=== PATIENT | male | born 1955 | race Caucasian/White ===

== ENCOUNTER 2018-03-03 12:58 | Emergency (ER) | payer OTHER ==
[2018-03-03 13:04] VITALS: BP 117/78; PULSE 104; TEMP 98.1; BMI 27.1
[2018-03-03] MEDS ORDERED: ONDANSETRON 4 MG/2 ML VIAL IVPUSH ONE (15:06)
[2018-03-03] MEDS ORDERED: FAMOTIDINE 20 MG/50 ML IVPB 20 MG/50 ML MG IVPB ONE ×2 (15:06→15:20)
[2018-03-03] MEDS ORDERED: SODIUM CHLORIDE 0.9% 1000 ML INFUS.BAG IV ONE ×2 (15:06→17:32)
[2018-03-03] MEDS ORDERED: ONDANSETRON 4 MG/2 ML VIAL ONE (15:20)
--- NOTE | 2018-03-03 15:23 | PDOC ---
History of Present Illness - General Chief Complaint: Vomiting/Diarrhea Stated Complaint: VOMITING/DIARRHEA Time Seen by Provider: 03/03/18 14:55 History Source: Patient Exam Limitations: No Limitations - History of Present Illness Initial Comments: 03/03/18 15:23 The patient is a 63M with a PMH of diabetes, hypercholesterolemia, depression, prostate cancer, VT, and cardiac stents x5 who presents to the ER with complaints of nausea, vomiting, diarrhea, and abdominal pain. The patient states that he had a colonoscopy and endoscopy with Dr. Barrow 5 days ago. He felt fine the night of. That night he ate some chicken and a burger. He states that the next night, he felt "violent gas" with vomiting NBNB, and copious watery diarrhea. Admits to R sided abdominal pain which is sharp, constant, worsening, nonradiating, and not alleviated or exacerbated by anything. He admits to SOB but denies CP, fevers, chills. Past History - Past Medical History Allergies/Adverse Reactions: Allergies Allergy/AdvReac Type Severity Reaction Status Date / Time No Known Allergies Allergy Verified 03/03/18 13:04 Home Medications: Ambulatory Orders Atorvastatin Ca [Lipitor] 80 mg PO HS 08/07/12 Clopidogrel Bisulfate [Plavix -] 75 mg PO DAILY 08/07/12 Lisinopril [Prinivil] 10 mg PO DAILY 08/07/12 Metoprolol Tartrate [Lopressor -] 25 mg PO DAILY 08/07/12 metFORMIN HCL [Glucophage -] 1,000 mg PO BID 08/07/12 Aspirin [ASA -] 81 mg PO DAILY 03/16/15 Bicalutamide [Casodex -] 50 mg PO DAILY 01/29/18 Gabapentin [Neurontin] 100 mg PO BID 01/29/18 Glipizide [Glucotrol Xl] 10 mg PO DAILY 01/29/18 Fluticasone/Vilanterol [Breo Ellipta 100-25 Mcg INH] 1 each IH DAILY 02/26/18 Mag Carb/Aluminum Hydrox/Algin [Gaviscon Liquid] 30 ml PO PRN PRN #1 oral.susp 02/26/18 Pantoprazole Sodium 40 mg PO DAILY #90 tablet. 02/26/18 Pantoprazole Sodium [Protonix -] 40 mg PO HS #30 tablet.ec 02/26/18 Umeclidinium [place] [Incruse Ellipta] 62.5 mcg IH DAILY 02/26/18 Anemia: No Asthma: No Cancer: Yes (PROSTATE) Cardiac Disorders: Yes (VT X 2) CVA: No COPD: No Dementia: No Diabetes: Yes Disorders: No HTN: Yes Hypercholesterolemia: Yes Liver Disease: No Psychiatric Problems: Yes (DEPRESSION.) Seizures: No Thyroid Disease: No - Surgical History Abdominal Surgery: No Appendectomy: No Cardiac Surgery: Yes (STENT X5) Cholecystectomy: No Lung Surgery: No Neurologic Surgery: No Orthopedic Surgery: No - Suicide/Smoking/Psychosocial Hx Smoking Status: Yes (QUIT) Smoking History: Never smoked Have you smoked in the past 12 months: No Number of Cigarettes Smoked Daily: 0 If you are a former smoker, when did you quit?: 1995 Information on smoking cessation initiated: No Hx Alcohol Use: No Drug/Substance Use Hx: No Substance Use Type: None Review of Systems - Review of Systems Able to Perform ROS?: Yes Comments:: 03/03/18 17:30 GENERAL/CONSTITUTIONAL: No fever or chills. No weakness. HEAD, EYES, EARS, NOSE AND THROAT: No change in vision. No ear pain or discharge. No sore throat. CARDIOVASCULAR: No chest pain, palpitations, or lightheadedness. RESPIRATORY: Positive for shortness of breath. No cough, wheezing, or hemoptysis. GASTROINTESTINAL: Positive for nausea, vomiting, diarrhea, and abdominal pain. GENITOURINARY: No dysuria, frequency, hematuria, or change in urination. MUSCULOSKELETAL: No joint or muscle swelling or pain. No neck or back pain. SKIN: No rash or lesions. NEUROLOGIC: No headache, numbness, tingling, focal weakness, loss of consciousness, or change in strength/sensation. ENDOCRINE: No increased thirst. No abnormal weight change. HEMATOLOGIC/LYMPHATIC: No anemia, easy bleeding, or history of blood clots. ALLERGIC/IMMUNOLOGIC: No hives or skin allergy. Is the patient limited Azeri proficient: No *Physical Exam - Vital Signs Last Vital Signs Temp Pulse Resp BP Pulse Ox 98.1 F 104 H 18 117/78 97 03/03/18 13:03 03/03/18 13:03 03/03/18 13:03 03/03/18 13:03 03/03/18 13:03 - Physical Exam Comments: 03/03/18 17:32 GENERAL: Well developed, well nourished. Awake and alert. No acute distress. HEENT: Normocephalic, atraumatic. Hearing grossly normal. Moist mucous membranes. PERRLA, EOMI. No conjunctival pallor. Sclera are non-icteric. Oropharynx is clear. NECK: Supple. Full ROM. No JVD. Carotid pulses 2+ and symmetric, without bruits. No thyromegaly. No lymphadenopathy. CARDIOVASCULAR: Regular rate and rhythm. No murmurs, rubs, or gallops. Distal pulses are 2+ and symmetric. PULMONARY: No evidence of respiratory distress. Lungs clear to auscultation bilaterally. No wheezing, rales or rhonchi. ABDOMINAL: Soft. Non-tender. Non-distended. No rebound or guarding. No organomegaly. Normoactive bowel sounds. GENITOURINARY: No CVA tenderness bilaterally. MUSCULOSKELETAL: Normal range of motion at all joints. No bony deformities or tenderness. EXTREMITIES: No cyanosis. No clubbing. No edema. No calf tenderness or swelling. SKIN: Warm and dry. Normal capillary refill. No rashes. No jaundice. NEUROLOGICAL: Alert, awake, appropriate. Cranial nerves 2-12 grossly intact. Normal speech. Gait is normal without ataxia. PSYCHIATRIC: Cooperative. Good eye contact. Appropriate mood and affect. ED Treatment Course - LABORATORY CBC & Chemistry Diagram: 03/03/18 15:44 03/03/18 15:44 - RADIOLOGY Radiology Studies Ordered: Category Date Time Status CHEST PA & LAT [RAD] Stat Radiology 03/03/18 15:06 Ordered Medical Decision Making - Medical Decision Making 03/03/18 17:34 The patient is a 63F with a PMH of DM, HLD, 5 stents who presents to the ER with worsening abdominal pain, nausea, vomiting, and diarrhea 24 hours after having a colonoscopy. The patient admits to polyp removal making me concerned for perforation vs gastroenteritis. The patient also admits that he has gotten "food poisoning" after eating his 's food. CBC CMP WNL. Pending CTAP. 03/03/18 18:59 I have endorsed the patient to Dr. Crane for further care pending CTAP. *DC/Admit/Observation/Transfer Diagnosis at time of Disposition: Nausea & vomiting - Discharge Dispostion Disposition: HOME Condition at time of disposition: Stable - Referrals Referrals: Calvin Zheng MD [Primary Care Provider] - - Patient Instructions Printed Discharge Instructions: DI for Nausea -- Adult Additional Instructions: You were seen today in the Emergency Department for nausea, vomiting, and diarrhea. Please review the handouts provided at discharge. Please follow up with your Primary Care Physician within the next 1-3 days. Return to the Emergency Department if you develop fevers, worsening symptoms, or new concerning symptoms. - Post Discharge Activity Forms/Work/School Notes: Back to Work
[2018-03-03 16:08] LABS: BASO % 0.1 % (0-2.0); EOS % 3.7 % (0-4.5); HEMATOCRIT 39.5 % (35.4-49); HEMOGLOBIN 13.7 GM/dL (11.7-16.9); LYMPH % 13.2 % (8-40); MCH 31.8 pg (25.7-33.7); MCHC 34.7 g/dl (32.0-35.9); MEAN CELL VOLUME 91.5 fl (80-96); MONO % 11.3 % (3.8-10.2); NEUT % 71.7 % (42.8-82.8); PLATELET COUNT 162 K/MM3 (134-434); RBC 4.32 M/mm3 (4.00-5.60); RDW 12.8 % (11.9-15.9); WHITE BLOOD COUNT 4.3 K/mm3 (4.0-10.0)
--- NOTE | 2018-03-03 16:16 | PDOC ---
Attending Attestation - HPI HPI: 03/03/18 17:17 The patient is a 63 year old male, with a significant past medical history of diabetes, hypercholesterolemia, depression, prostate cancer, [place], and cardiac stents x5, who presents to the ED complaining of nausea, vomiting, diarrhea, and abdominal pain. He describes his abdominal pain as diffused throughout, ranging from mild to moderate, without radiation or modifying factors. The patient states that he had a colonoscopy and endoscopy with Dr. Barrow 5 days ago. He notes that he felt fine prior and after the procedures. He notes that he ate chicken and a burger the night after the colonoscopy. The patient denies chest pain, shortness of breath, headache and dizziness. Denies fever, chills, constipation. Allergies: None Past surgical history: cardiac stents (x5) Social History: No alcohol, tobacco or drug use reported - Physicial Exam PE: 03/03/18 17:17 Constitutional: Awake, alert, oriented. No acute distress. Head: Normocephalic. Atraumatic Eyes: PERRL. EOMI. Conjunctivae are not pale. ENT: Mucous membranes are moist and intact. Posterior pharynx without exudates or erythema. Uvula midline. Neck: Supple. Full ROM. No lymphadenopathy. Cardiovascular: Regular rate. Regular rhythm. S1, S2 regular. Distal pulses are 2+ and symmetric. Pulmonary/Chest: No evidence of respiratory distress. Clear to auscultation bilaterally No wheezing, rales or rhonchi. Abdominal: Soft and non-distended. There is no tenderness. No rebound, guarding or rigidity. No organomegaly. No palpable masses. Good bowel sounds. Back: No CVA tenderness. Musculoskeletal: No edema. No cyanosis. No clubbing. Full range of motion in all extremities. Nocalf tenderness. Radial/pedal pulses are intact and 2+ bilaterally Skin: Skin is warm and dry. No petechiae. No purpura. Neurological: Alert and oriented to person, place, and time. Cranial nerves II -XII are grossly intact. Normal speech. Strength is grossly symmetric. No sensory deficits. Psychiatric: Good eye contact. Normal interaction, affect and behavior. <Jorge A Gilliam - Last Filed: 03/03/18 17:17> - Resident Resident Name: Hebert Bassett - ED Attending Attestation I have performed the following: I have examined & evaluated the patient, The case was reviewed & discussed with the resident, I agree w/resident's findings & plan, Exceptions are as noted - Medical Decision Making 03/03/18 16:16 I, Dr. Janessa Donovan, DO, attest that this document has been prepared under my direction and personally reviewed by me in its entirety. I further attest, that it accurately reflects all work, treatment, procedures and medical decision -making performed by me. 03/03/18 17:14 a/p: 63yo male with recent EGD/[place] last thursday with DR. Barrow who has n/v/d x 2 days and abd pain since thursday -no sick contacts -had polypectomy x 3 thursday -nonbloody/nonbilious n/v/d -will send labs -admits to using vicodin -no cp/sob -no f/c -pt is nontoxic in appearance -will obtain ct abd/pelvis given bx and polypectomy -will monitor and reassess 03/03/18 18:19 labs reviewed pt with UDS +narcotics and benzos but underwent EGD/[place] thursday and takes vicodin. pending CT 03/03/18 21:03 ct without acute findings stable for d/c to home 03/03/18 21:20 pt agrees with the plan <Janessa Donovan - Last Filed: 03/03/18 21:20> Heart Score/ECG Review - ECG Intrepretation Comment:: 03/03/18 20:13 sinus at 77, nl axis, nl interval, no acute st/t wave findings <Janessa Donovan - Last Filed: 03/03/18 21:20>
[2018-03-03 16:24] LABS: INR 1.12 (0.83-1.09); PROTHROMBIN TIME (PATIENT) 12.7 SEC (9.7-13.0)
[2018-03-03 16:33] LABS: ALBUMIN 3.9 g/dl (3.4-5.0); ANION GAP 7 MMOL/L (8-16); BILIRUBIN,TOTAL 0.5 mg/dL (0.2-1.0); BLOOD UREA NITROGEN 23 mg/dL (7-18); CALCIUM 8.6 mg/dL (8.5-10.1); CHLORIDE 107 mmol/L (98-107); CO2 24 mmol/L (21-32); CREATININE 1.2 mg/dL (0.7-1.3); GLUCOSE,RANDOM 143 mg/dL (74-106); LIPASE 59 U/L (73-393); POTASSIUM 4.5 mmol/L (3.5-5.1); SGOT/AST 20 U/L (15-37); SGPT/ALT 24 U/L (12-78); SODIUM 138 mmol/L (136-145)
[2018-03-03 16:34] LABS: ALK PHOS 78 U/L (45-117)
[2018-03-03 17:24] LABS: COCAINE, UR NEGATIVE ng/ml (CUTOFF=300); METHADONE, UR NEGATIVE ng/ml (CUTOFF=300); PHENCYCLIDINE,URINE NEGATIVE ng/ml (CUTOFF=25); URINE AMPHETAMINES NEGATIVE ng/ml (CUTOFF=500); URINE BARBITURATES NEGATIVE ng/ml (CUTOFF=200)
[2018-03-03 17:25] LABS: OPIATES, URI POSITIVE ng/ml (CUTOFF=300); URINE BENZODIAZEPINES POSITIVE ng/ml (CUTOFF=200)
--- NOTE | 2018-03-03 19:03 | PDOC ---
*Physical Exam - Vital Signs Last Vital Signs Temp Pulse Resp BP Pulse Ox 98.1 F 104 H 18 117/78 97 03/03/18 13:03 03/03/18 13:03 03/03/18 13:03 03/03/18 13:03 03/03/18 13:03 - Physical Exam Comments: GENERAL: Awake, alert, and fully oriented, in no acute distress HEAD: No signs of trauma, normocephalic, atraumatic EYES: PERRL, EOMI, sclera anicteric, conjunctiva clear ENT: Auricles normal inspection, hearing grossly normal, nares patent, oropharynx clear without exudates. Moist mucosa NECK: Normal ROM, supple, no lymphadenopathy LUNGS: No distress, speaks full sentences, clear to auscultation bilaterally HEART:Regular rate and rhythm, normal S1 and S2, no murmurs appreciated, peripheral pulses normal and equal bilaterally ABDOMEN: Soft, nontender, normoactive bowel sounds. No guarding, no rebound. No masses EXTREMITIES : Normal inspection, Normal range of motion, no edema. No clubbing or cyanosis NEUROLOGICAL: Cranial nerves II through XII grossly intact. Normal speech, normal gait, no focal sensorimotor deficits SKIN: Warm, Dry, normal turgor, no rashes or lesions noted 03/04/18 02:23 ED Treatment Course - LABORATORY CBC & Chemistry Diagram: 03/03/18 15:44 03/03/18 15:44 - ADDITIONAL ORDERS Additional order review: Laboratory Results 03/03/18 03/03/18 03/03/18 15:44 15:44 15:44 PT with INR 12.70 INR 1.12 H Sodium 138 Potassium 4.5 Chloride 107 Carbon Dioxide 24 Anion Gap 7 L BUN 23 H Creatinine 1.2 Creat Clearance w eGFR > 60 Random Glucose 143 H Calcium 8.6 Total Bilirubin 0.5 AST 20 D ALT 24 D Alkaline Phosphatase 78 Total Protein 7.0 Albumin 3.9 Lipase 59 L Opiates Screen Methadone Screen Barbiturate Screen Phencyclidine Screen Ur Amphetamines Screen MDMA (Ecstasy) Screen Benzodiazepines Screen Cocaine Screen U Marijuana (THC) Screen Blood Type A POSITIVE Antibody Screen Negative 03/03/18 15:27 PT with INR INR Sodium Potassium Chloride Carbon Dioxide Anion Gap BUN Creatinine Creat Clearance w eGFR Random Glucose Calcium Total Bilirubin AST ALT Alkaline Phosphatase Total Protein Albumin Lipase Opiates Screen Positive Methadone Screen Negative Barbiturate Screen Negative Phencyclidine Screen Negative Ur Amphetamines Screen Negative MDMA (Ecstasy) Screen Negative Benzodiazepines Screen Positive Cocaine Screen Negative U Marijuana (THC) Screen Negative Blood Type Antibody Screen 03/03/18 15:44 RBC 4.32 MCV 91.5 MCHC 34.7 RDW 12.8 MPV 8.0 Neutrophils % 71.7 Lymphocytes % 13.2 Monocytes % 11.3 H Eosinophils % 3.7 Basophils % 0.1 - Medications Given in the ED: ED Medications Discontinued Medications Generic Name Dose Route Start Last Admin Trade Name Freq PRN Reason Stop Dose Admin Famotidine/Sodium Chloride 20 mg in 50 mls @ 100 mls/hr 03/03/18 15:06 15:05 Pepcid 20 Mg Premixed Ivpb - IVPB 03/03/18 15:35 100 mls/hr ONCE ONE Administration Ondansetron HCl 4 mg 03/03/18 15:06 03/03/18 15:15 Zofran Injection IVPUSH 03/03/18 15:07 4 mg ONCE ONE Administration Sodium Chloride 1,000 ml 03/03/18 15:06 03/03/18 16:09 Normal Saline - IV 03/03/18 15:07 1,000 ml ONCE ONE Administration Sodium Chloride 1,000 ml 03/03/18 17:32 03/03/18 17:42 Normal Saline - IV 03/03/18 17:33 1,000 ml ONCE ONE Administration Medical Decision Making - Medical Decision Making I have assumed care of the patient from Dr. Bassett, who has discussed the clinical presentation, work-up, and ED course thus far. I have reviewed the patients medical record and ED course and agree with all aspects of care thus far. ED Course Patient reports improvement in symptoms s/p GI cocktail. Dispo pending CT, likely home if negative for acute pathology. 03/03/18 19:01 CT without significant acute pathology Results discussed with patient Plan for DC w/ PCP f/u Patient in agreement with plan and verbalizes understanding Dispo: Home w/ PCP f/u 03/04/18 02:21 *DC/Admit/Observation/Transfer Diagnosis at time of Disposition: Nausea & vomiting Qualifiers: Vomiting type: unspecified Vomiting Intractability: non-intractable Qualified Code(s): R11.2 - Nausea with vomiting, unspecified - Discharge Dispostion Disposition: HOME Condition at time of disposition: Stable Decision to Admit order: No - Referrals Referrals: Calvin Zheng MD [Primary Care Provider] - - Patient Instructions Printed Discharge Instructions: DI for Nausea -- Adult Additional Instructions: You were seen today in the Emergency Department for nausea, vomiting, and diarrhea. Please review the handouts provided at discharge. Please follow up with your Primary Care Physician within the next 1-3 days. Return to the Emergency Department if you develop fevers, worsening symptoms, or new concerning symptoms. - Post Discharge Activity Forms/Work/School Notes: Back to Work
--- NOTE | 2018-03-04 15:40 | EKG ---
Test Reason : Blood Pressure : / mmHG Vent. Rate : 077 BPM Atrial Rate : 077 BPM P-R Int : 134 ms QRS Dur : 080 ms QT Int : 392 ms P-R-T Axes : 008 056 019 degrees QTc Int : 443 ms NORMAL SINUS RHYTHM NORMAL ECG WHEN COMPARED WITH ECG OF 16-MAR-2015 18:59, NO SIGNIFICANT CHANGE WAS FOUND Confirmed by LATISHA HURTADO MD ([id number]) on 03/04/2018 3:39:58 PM Referred By: Confirmed By:LATISHA HURTADO MD
== END 2018-03-03 22:20 | disposition home or self-care (01) ==
LOC: JER 12:58
PROC: 3E0337Z Introduction of Electrolytic and Water Balance Substance into Peripheral Vein, Percutaneous Approach (ICD-10-PCS; principal; 2018-03-03)
PROC: 3E0337Z Introduction of Electrolytic and Water Balance Substance into Peripheral Vein, Percutaneous Approach (ICD-10-PCS; 2018-03-03)
PROC: 3E033GC Introduction of Other Therapeutic Substance into Peripheral Vein, Percutaneous Approach (ICD-10-PCS; 2018-03-03)
DX: R11.2 Nausea with vomiting, unspecified (principal)
CPT/HCPCS: 36415; 71046-TC-FY; 74177-TC; 80053; 80307; 83690; 85025; 85610; 86850; 86900; 86901; 93005; 93010; 99283-25; J7030